=== PATIENT | male | born 1935 | race Caucasian/White ===

== ENCOUNTER → 2024-02-24 06:34 | Outpatient (REF) | payer MEDICARE, BC, SELFPAY ==
[2024-02-24 09:49] LABS: % Immature Granulocytes 0.2 % (0-0.5); % Neutrophils 59.8 % (42.2-75.2); Absolute Basophils 0.1 10^3/uL (0-0.2); Absolute Eosinophils 0.3 10^3/uL (0-0.7); Absolute Lymphocytes 1.5 10^3/uL (1.2-3.4); Absolute Monocytes 0.7 10^3/uL (0.1-0.6); Absolute Neutrophils 3.7 10^3/uL (1.4-6.5); Hematocrit 41.3 % (39.0-52.0); Mean Corp Hgb Conc. 33.9 g/dL (33.0-37.0); Mean Corpuscular Hgb 28.5 pg (27.0-31.0); Mean Corpuscular Volume 84.1 fL (80.0-94.0); Mean Platelet Volume 11.5 fL (7.4-10.4); Nucleated Red Blood Cells % 0 % (-); Platelet Count 178 10^3/uL (130-400); Red Blood Cell Count 4.91 10^6/uL (4.70-6.10); Red Cell Dist. Width 13.5 % (11.5-14.5); White Blood Cell Count 6.3 10^3/uL (4.8-10.8)
[2024-02-24 10:15] LABS: INR 1.27
[2024-02-24 10:16] LABS: APTT 39.3 Sec (23.4-35.0)
[2024-02-24 10:18] LABS: ALT (SGPT) 19 U/L (0-50); AST (SGOT) 25 U/L (17-59); Albumin 4.4 g/dl (3.5-5.0); Alkaline Phosphatase 48 U/L (38-126); Blood Urea Nitrogen 17 mg/dl (9-20); Calcium 9.7 mg/dl (8.4-10.2); Carbon Dioxide 28 mmol/L (22-30); Chloride 100 mmol/L (98-107); Glucose 143 mg/dl (70-99); HDL Cholesterol 52 mg/dl; LDL Cholesterol, Calculated 54 mg/dl; Potassium 3.9 mmol/L (3.5-5.1); Sodium 137 mmol/L (135-145); Total Cholesterol 132 mg/dl (50-199); Triglyceride 132 mg/dl (10-149); Very Low Density Lipoprotein 26 mg/dl (0-30); eGFR > 60.00
[2024-02-24 10:49] LABS: Glycohemoglobin (HgbA1c) 6.5 % (4.0-5.6)
[2024-02-24 11:20] LABS: Microalbumin, Random Urine 4.1 mg/dl (0.6-1.7)
[2024-02-24 11:21] LABS: Microalbumin/creatinine Ratio 32.9 mg/g
[2024-02-24 11:39] LABS: TSH Reflex To Free T4 3.45 uIU/ml (0.47-4.68)
[2024-02-24 19:34] LABS: AFP Male/Tumor Marker 2.89 ng/ml
== END ==
LOC: HWLAB 06:34
PROVIDERS: ATTENDING PHYSICIAN Nurse Practitioner; FAMILY PHYSICIAN Nurse Practitioner Family
DX: K74.69 Other cirrhosis of liver (principal); E78.00 Pure hypercholesterolemia, unspecified; I10 Essential (primary) hypertension; I25.10 Atherosclerotic heart disease of native coronary artery without angina pectoris; Z00.00 Encounter for general adult medical examination without abnormal findings; E11.9 Type 2 diabetes mellitus without complications
CPT/HCPCS: 36415; 80053; 80061; 82043; 82105; 82570; 83036; 84443; 85025; 85610; 85730

== ENCOUNTER → 2024-03-13 06:30 | Outpatient (REF) | payer MEDICARE, BC, SELFPAY | LOC: HWRAD 06:30 | PROVIDERS: ATTENDING PHYSICIAN Nurse Practitioner; FAMILY PHYSICIAN Nurse Practitioner Family | DX: K74.69 Other cirrhosis of liver (principal) | CPT/HCPCS: 76700 ==

== ENCOUNTER → 2024-05-12 10:56 | Outpatient (REF) | payer MEDICARE, BC, SELFPAY | LOC: HWRAD 10:56 | PROVIDERS: ATTENDING PHYSICIAN Nurse Practitioner Family | DX: M85.80 Other specified disorders of bone density and structure, unspecified site (principal); M85.89 Other specified disorders of bone density and structure, multiple sites | CPT/HCPCS: 77080 ==

== ENCOUNTER → 2024-09-21 07:09 | Outpatient (REF) | payer MEDICARE, BC, SELFPAY ==
[2024-09-21 10:09] LABS: % Basophils 0.9 % (0-2); % Eosinophils 3.4 % (0-6); % Immature Granulocytes 0.3 % (0-0.5); % Lymphocytes 19.8 % (20.5-51.1); % Monocytes 9.8 % (1.7-9.3); % Neutrophils 65.8 % (42.2-75.2); Absolute Basophils 0.1 10^3/uL (0-0.2); Absolute Eosinophils 0.2 10^3/uL (0-0.7); Absolute Lymphocytes 1.4 10^3/uL (1.2-3.4); Absolute Monocytes 0.7 10^3/uL (0.1-0.6); Absolute Neutrophils 4.6 10^3/uL (1.4-6.5); Hematocrit 43.9 % (39.0-52.0); Hemoglobin 15.1 g/dL (13.0-18.0); Mean Corp Hgb Conc. 34.4 g/dL (33.0-37.0); Mean Corpuscular Hgb 29.2 pg (27.0-31.0); Mean Corpuscular Volume 84.7 fL (80.0-94.0); Mean Platelet Volume 10.7 fL (7.4-10.4); Nucleated Red Blood Cells % 0 % (-); Platelet Count 196 10^3/uL (130-400); Red Blood Cell Count 5.18 10^6/uL (4.70-6.10); Red Cell Dist. Width 13.5 % (11.5-14.5)
[2024-09-21 10:36] LABS: ALT (SGPT) 17 U/L (0-50); AST (SGOT) 22 U/L (17-59); Albumin 4.5 g/dl (3.5-5.0); Alkaline Phosphatase 52 U/L (38-126); Blood Urea Nitrogen 19 mg/dl (9-20); Calcium 9.8 mg/dl (8.4-10.2); Carbon Dioxide 29 mmol/L (22-30); Chloride 95 mmol/L (98-107); Glucose 181 mg/dl (70-99); HDL Cholesterol 45 mg/dl; LDL Cholesterol, Calculated 76 mg/dl; Potassium 3.9 mmol/L (3.5-5.1); Sodium 136 mmol/L (135-145); Total Bilirubin 1.3 mg/dl (0.2-1.3); Total Cholesterol 150 mg/dl (50-199); Total Protein 7.3 g/dl (6.3-8.2); Triglyceride 145 mg/dl (10-149); Very Low Density Lipoprotein 29 mg/dl (0-30); eGFR 58.53
[2024-09-21 10:43] LABS: Microalbumin, Random Urine 3.4 mg/dl (0.6-1.7); Microalbumin/creatinine Ratio 20.6 mg/g
[2024-09-21 11:04] LABS: TSH Reflex To Free T4 3.05 uIU/ml (0.47-4.68)
[2024-09-21 11:09] LABS: Glycohemoglobin (HgbA1c) 7.5 % (4.0-5.6)
== END ==
LOC: HWLAB 07:09
PROVIDERS: ATTENDING PHYSICIAN Nurse Practitioner Family
DX: K74.69 Other cirrhosis of liver (principal); I10 Essential (primary) hypertension; E78.00 Pure hypercholesterolemia, unspecified; I48.0 Paroxysmal atrial fibrillation; B18.2 Chronic viral hepatitis C; J30.9 Allergic rhinitis, unspecified; E11.9 Type 2 diabetes mellitus without complications; M85.80 Other specified disorders of bone density and structure, unspecified site; R21 Rash and other nonspecific skin eruption
CPT/HCPCS: 36415; 80053; 80061; 82043; 82570; 83036; 84443; 85025

== ENCOUNTER 2024-10-05 09:10 | Emergency (ER) | payer MEDICARE, BC, SELFPAY ==
[2024-10-05 09:16] VITALS: BP 171/78
[2024-10-05 12:26] VITALS: BMI 29.9
[2024-10-05 12:29] LABS: % Basophils 0.8 % (0-2); % Eosinophils 1.7 % (0-6); % Immature Granulocytes 0.5 % (0-0.5); % Lymphocytes 22.6 % (20.5-51.1); % Monocytes 8.7 % (1.7-9.3); % Neutrophils 65.7 % (42.2-75.2); Absolute Basophils 0.1 10^3/uL (0-0.2); Absolute Eosinophils 0.1 10^3/uL (0-0.7); Absolute Lymphocytes 1.8 10^3/uL (1.2-3.4); Absolute Monocytes 0.7 10^3/uL (0.1-0.6); Absolute Neutrophils 5.2 10^3/uL (1.4-6.5); Hematocrit 45.2 % (39.0-52.0); Hemoglobin 15.6 g/dL (13.0-18.0); Mean Corp Hgb Conc. 34.5 g/dL (33.0-37.0); Mean Corpuscular Hgb 29.2 pg (27.0-31.0); Mean Corpuscular Volume 84.5 fL (80.0-94.0); Mean Platelet Volume 10.8 fL (7.4-10.4); Nucleated Red Blood Cells % 0 % (-); Platelet Count 203 10^3/uL (130-400); Red Blood Cell Count 5.35 10^6/uL (4.70-6.10); Red Cell Dist. Width 13.7 % (11.5-14.5); White Blood Cell Count 7.8 10^3/uL (4.8-10.8)
[2024-10-05 12:44] LABS: ALT (SGPT) 19 U/L (0-50); AST (SGOT) 25 U/L (17-59); Albumin 4.6 g/dl (3.5-5.0); Alkaline Phosphatase 50 U/L (38-126); Blood Urea Nitrogen 20 mg/dl (9-20); Calcium 9.9 mg/dl (8.4-10.2); Carbon Dioxide 26 mmol/L (22-30); Chloride 97 mmol/L (98-107); Estimated Creatinine Clearance 48 ml/min; Glucose 184 mg/dl (70-99); Potassium 4.3 mmol/L (3.5-5.1); Total Bilirubin 1.5 mg/dl (0.2-1.3); Total Protein 7.6 g/dl (6.3-8.2); eGFR > 60.00
[2024-10-05 12:46] VITALS: BP 182/73
[2024-10-05 13:00] LABS: Sodium 131 mmol/L (135-145)
--- NOTE | 2024-10-05 14:31 | ED.GENMED ---
History of Present Illness
General
Chief Complaint: Visual Problem
Source: patient
Time Seen by Provider: 10/05/24 11:57
History of Present Illness
History of Present Illness:
This is an 89-year-old male who presents with 3 days of symptoms. He presents reporting that 3 days ago was having little bit of pressure and some symptoms around his left eye. It was suspected to be sinusitis. States he started to have some
vision changes and today admits to double vision. Denies motor weakness. No vomiting. No headache. No difficulty walking. Patient states that his double vision has persisted.
Past History
Past History
ED Past Medical History: Arrthythmia (A fib followed by [facility] Dr. Ramos.), Cancer (colon cancer 1986. Last colonoscopy [address] Cutler.), HTN, Hypercholesterolemia, NIDDM, Psychiatric (anxiety) and Other (lumbar DJD)
ED Past Surgical History: Bowel resection (colostomy followed by Dr. Cutler. Last colonoscopy 12/2012.) and Cardiac
Social History
Tobacco: Non-smoker
Alcohol: None
Drug: None
Personal:
Living: with family
Employment: Retired
Family History
Family History: Other (Noncontributory)
Phy Exam
Physical Exam
Physical Exam:
CONSTITUTIONAL Patient alert and oriented to person, place and time. Well-appearing. Vital signs reviewed.
HEAD atraumatic, normocephalic.
EYES mild left ptosis, left cranial nerve III palsy noted. No double vision with lateral gaze to the left. Pupil normal and reactive
NECK normal range of motion, Trachea midline, no jugular venous distention.
RESPIRATORY CHEST No respiratory distress noted, Chest expansion equal, Bilateral breath sounds clear.
CARDIOVASCULAR regular rate and rhythm, Heart sounds normal.
BACK normal inspection, no obvious deformities
UPPER EXTREMITY range of motion normal, Motor strength normal, no cyanosis, no edema.
LOWER EXTREMITY range of motion normal, Motor strength normal, no cyanosis, no edema.
NEURO Speech normal, No focal motor deficits, J Carlos coma scale 15, Memory normal, Cranial Nerves intact to screening exam.
SKIN skin warm, dry, and normal in color.
Course
Orders/Labs/Results
Orders:
Orders
10/05/24 12:14
CT Orbits W/o Iv Contrast Urgent
Comment:
Reason For Exam: L Cn 3 palsy, facial fullness
10/05/24 12:15
CT Head W/o Iv Contrast Urgent
Comment:
Reason For Exam: L CN III palsy
10/05/24 12:19
Comprehensive Metabolic Panel Urgent
10/05/24 12:20
Complete Blood Count/With Diff Urgent
Abnormal Lab Results
10/05/24 10/05/24
12:19 12:20
MPV 10.8 H fL
(7.4-10.4)
Absolute Monos (auto) 0.7 H 10^3/uL
(0.1-0.6)
Sodium 131 L mmol/L
(135-145)
Chloride 97 L mmol/L
(98-107)
Glucose 184 H mg/dl
(70-99)
Total Bilirubin 1.5 H mg/dl
(0.2-1.3)
10/05/24 12:20
10/05/24 12:19
Vital Signs
Initial and Last Documented VS:
Initial Vital Signs
Temp Pulse Resp BP Pulse Ox
97.6 F 78 16 171/78 98
10/05/24 09:16 10/05/24 09:16 10/05/24 09:16 10/05/24 09:16 10/05/24 09:16
Last Documented Vital Signs
Temp Pulse Resp BP Pulse Ox
98.2 F 78 16 182/73 98
10/05/24 12:46 10/05/24 09:16 10/05/24 12:46 10/05/24 12:46 10/05/24 12:46
MDM/Problems Addressed
MDM/Problems Addressed:
Uncontrolled hypertension, cranial nerve III palsy, hyperglycemia
*Radiology
Radiology exam reviewed: preliminary read by ED provider (No obvious bleeding by CT) and radiology read reviewed
*Pulse Oximetry
Patient hypoxic: no
*Critical Care Note
Total Time (30-74mins, 75-104mins- exclusive of procedures): 30 minutes
Data Reviewed
Source: patient
Further Testing Considered But Not Given:
Consider CTA but no change in pupil
Patient Management
Discussion with other providers: Medical Staffing Coordinator (Case discussed with neurology)
Escalation/DeEscalation of care consider admission/obs:
Patient already on Eliquis and aspirin. Seen by neurology feels the patient can go home. Neurology recommends continue current medications. He does not recommend admission for any further studies. I will recommend outpatient follow-up with his
primary care doctor.
ED Attending Note
-
Portions of this chart may have been created with voice recognition software.� Occasional wrong word or��sound alike� substitutions may have occurred due to the inherent limitations of voice recognition software.
Discharge Plan
Departure
Patient Disposition: Home (Routine Discharge)
Date of Disposition: 10/05/24
Time of Disposition: 14:32
Patient with high blood pressure during this ER visit?: Yes
Discharge Problem:
3rd cranial nerve palsy
Instructions: BLOOD PRESSURE
Prescriptions:
No Action
carvedilol 6.25 MG tablet
6.25 mg PO BID
amlodipine 5 MG tablet
5 mg PO DAILY
tamsulosin 0.4 MG capsule
0.4 mg PO DAILY
metformin 500 MG tablet extended release 24 hr
500 mg PO DAILY
finasteride 5 MG tablet
5 mg PO DAILY
rosuvastatin 5 MG tablet
5 mg PO QPM
aspirin 81 MG tablet,delayed release (DR/EC)
81 mg PO DAILY
losartan-hydrochlorothiazide 100-25 mg Tablet
1 tab PO DAILY
doxycycline monohydrate 100 mg Capsule
100 mg PO BID
Referrals:
Taz Jordan CRNP [Family Provider] -
Activity Restrictions/Additional Instructions:
3rd nerve palsy
Please continue your baby aspirin daily and your cholesterol medicine. Please be sure to see your doctor in the next 3 to 5 days for follow-up and reevaluation. Outpatient neurology follow-up is also important. Please have your doctor arrange
neurology follow-up in the next 2 to 3 weeks. Return immediately for vision changes that are worsening, difficulty with your speech, difficulty walking, weakness of any kind, numbness, tingling or any other concerns.
Your blood pressure was elevated while in the Emergency Department, please have your doctor re-evaluate it in the next 48 hours as untreated hypertension may lead to serious complications.
Interventions
Interventions:
*Risk Screen - Suicide Last Done: 10/05/24 09:22
*Neglect/Abuse Screening Last Done: 10/05/24 09:22
ED- Fall Risk Assessment Last Done: 10/05/24 12:26
ED- Neurological Assessment Last Done: 10/05/24 12:26
ED-EENT Assessment Last Done: 10/05/24 12:26
ED Swallowing Screen Last Done: 10/05/24 12:26
Discharge Date and Time
Print Language: UPPER SORBIAN
[2024-10-05 16:55] VITALS: BP 180/70
--- NOTE | 2024-10-05 17:38 | CON.NEURO ---
Neuro Assessment/Plan
Assessment
Cannon Syndrome, midbrain stroke.
Exam with Left CN 3 palsy and right sided vibratory loss
this is posterior circulation, so no need for carotid imaging
stroke secondary prevention continue ASA 81, Rosuvastatin 5
this stroke may be too small to see on MRI, and I dont believe it will change the management
Patient hoping to go home, and I agree as I don't believe further workup will change anything
Plan
continue ASA 81, Rosuvastatin 5
spoke with patient that usually this gets better on its own;
eye patch PRN for comfort
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
Consultation
Order
Date of Consultation: 10/05/24
Requesting Provider: Robles Mcnamara
Reason for Consult: CN3 palsy
Subjective/Objective
Subjective Data
Date of Service: October 05, 2024
From ED notes:
This is an 89-year-old male who presents with 3 days of symptoms. He presents reporting that 3 days ago was having little bit of pressure and some symptoms around his left eye. It was suspected to be sinusitis. States he started to have some
vision changes and today admits to double vision. Denies motor weakness. No vomiting. No headache. No difficulty walking. Patient states that his double vision has persisted.
Objective Data
Vital Signs
Temp Pulse Resp BP Pulse Ox
36.8 C 75 15 180/70 98
10/05/24 12:46 10/05/24 16:55 10/05/24 16:55 10/05/24 16:55 10/05/24 16:55
Lab Results
10/05/24 12:20
10/05/24 12:19
Sodium 131 mmol/L (135-145) L 10/05/24 12:19
Potassium 4.3 mmol/L (3.5-5.1) 10/05/24 12:19
BUN 20 mg/dl (9-20) 10/05/24 12:19
Glucose 184 mg/dl (70-99) H 10/05/24 12:19
Calcium 9.9 mg/dl (8.4-10.2) 10/05/24 12:19
Patient Allergies
lisinopril Adverse Reaction (Verified 12/24/21 01:47)
dry mouth
Physical Exam
-
Awake and Alert, speech Clear
'medical' Left CN 3 palsy, with ptosis, and normal pupil reflex
?trace L NL flattening
trace right sided vibratory loss
full strength b/l UE/LE
Medications
-
Home Medications
�Medication �Instructions �Recorded
amlodipine 5 mg tablet 5 mg PO DAILY Blood pressure 06/17/20
carvedilol 6.25 mg tablet 6.25 mg PO BID Blood pressure 06/17/20
finasteride 5 mg tablet 5 mg PO DAILY prostate issues 06/17/20
metformin 500 mg tablet,extended 500 mg PO DAILY Diabetes 06/17/20
release 24 hr
rosuvastatin 5 mg tablet 5 mg PO QPM High cholesterol 06/17/20
tamsulosin 0.4 mg capsule 0.4 mg PO DAILY Urinary issue 06/17/20
aspirin 81 mg tablet,delayed 81 mg PO DAILY Blood clot 06/18/20
release prevention/tx
doxycycline monohydrate 100 mg 100 mg PO BID 10/05/24
capsule
losartan 100 1 tab PO DAILY 10/05/24
mg-hydrochlorothiazide 25 mg tablet
== END 2024-10-05 17:10 | disposition home or self-care (01) ==
LOC: EMR 09:10
PROVIDERS: EMERGENCY PHYSICIAN Emergency Medicine; FAMILY PHYSICIAN Nurse Practitioner Family; OTHER PHYSICIAN Psychiatry & Neurology Clinical Neurophysiology
DX: H49.02 Third [oculomotor] nerve palsy, left eye (principal); I48.91 Unspecified atrial fibrillation; E78.00 Pure hypercholesterolemia, unspecified; I10 Essential (primary) hypertension; E11.65 Type 2 diabetes mellitus with hyperglycemia; Z79.84 Long term (current) use of oral hypoglycemic drugs; Z79.899 Other long term (current) drug therapy; Z85.038 Personal history of other malignant neoplasm of large intestine; Z93.3 Colostomy status
CPT/HCPCS: 99284; 70450; 70480; 80053; 85025; 93005

== ENCOUNTER 2025-01-30 00:19 | Emergency (ER) | payer MEDICARE, BC, SELFPAY ==
[2025-01-30 00:22] VITALS: BP 180/106
[2025-01-30 04:09] VITALS: BMI 28.8
[2025-01-30 05:00] VITALS: BP 168/75
--- NOTE | 2025-01-30 05:24 | ED.GENMED ---
History of Present Illness
General
Chief Complaint: Ostomy Problem
Source: patient and previous hospital records
Exam Limitations: none
Time Seen by Provider: 01/30/25 04:54
Nursing documentation reviewed up to this point in time: agreed with
History of Present Illness
History of Present Illness:
This is an 89-year-old gentleman with history of A-fib chronically maintained on low-dose aspirin as well as Xarelto. He has remote history of colon cancer with colostomy in place left lower quadrant.
He presents with bleeding from stoma that began yesterday. He has had sporadic similar issues in the past most recently December 2021. Has previously required silver nitrate cautery. He denies blood in his stools, denies abdominal pain, no dizziness
nor lightheadedness, no fever no chills, no nausea no vomiting.
Past History
Past History
ED Past Medical History: Arrthythmia (A fib followed by [facility] Dr. Ramos.), Cancer (colon cancer 1986. Last colonoscopy [address] Cutler.), HTN, Hypercholesterolemia, NIDDM, Psychiatric (anxiety) and Other (lumbar DJD)
ED Past Surgical History: Bowel resection (colostomy followed by Dr. Cutler. Last colonoscopy 12/2012.) and Cardiac
Social History
Tobacco: Non-smoker
Alcohol: None
Drug: None
Personal:
Living: with family
Employment: Retired
Family History
Family History: Other (Noncontributory)
Phy Exam
Physical Exam
Physical Exam:
GENERAL: 89-year-old gentleman appears his stated age, bright and alert, pleasant, appears in no acute distress. Hemodynamically stable.
EYE: anicteric
NECK: Supple, nontender, no meningismus, no significant adenopathy.
ENT: oral mucosa is moist.
CARDIAC: Regular rate and rhythm. no murmur.
LUNGS: Clear breath sounds bilaterally, no acute respiratory distress, no wheezes/rales/rhonchi
ABDOMEN: Rotund, soft, nondistended, without focal tenderness. Colostomy left lower quadrant with scant dark blood within the bag. Colostomy apparatus removed, stoma site cleansed with normal saline solution and 4 x 4 to reveal scant active
bleeding from left lateral edge of the stoma. This lateral edge of the stoma was cauterized with silver nitrate with prompt resolution of bleeding. There is no erythema, no soft tissue swelling. No bleeding from any other site of the stoma.
NEUROLOGICAL: Alert and oriented x3, no focal neuro deficits. Gait is steady.
SKIN: Warm and dry, normal color, skin intact. No rash.
MUSCULOSKELETAL: No C/C/E. peripheral pulses are full and equal b/l. No palpable tenderness.
PSYCH: Normal and appropriate interaction.
Course
Vital Signs
Initial and Last Documented VS:
Initial Vital Signs
Temp Pulse Resp BP Pulse Ox
97.4 F 82 20 180/106 97
01/30/25 00:22 01/30/25 00:22 01/30/25 00:22 01/30/25 00:22 01/30/25 00:22
Last Documented Vital Signs
Temp Pulse Resp BP Pulse Ox
97.4 F 82 20 180/106 97
01/30/25 00:22 01/30/25 00:22 01/30/25 00:22 01/30/25 00:22 01/30/25 00:22
MDM/Problems Addressed
Differential Diagnosis Includes:
As above.
Patient chronically maintained on anticoagulation presents with bleeding from left lateral edge of colostomy. There is no evidence of GI bleeding, no bloody colostomy output.
Lateral edge of stoma readily cauterized with silver nitrate.
There does appear to be very superficial abrasion lateral edge of the stoma that appears consistent with the edge of the ostomy apparatus. Recommend he trim a larger hole in his stoma apparatus to prevent focal rubbing of his stoma.
He remains hemodynamically stable. No evidence of significant blood loss. No indication for laboratory studies.
Prompt follow-up with PCP for recheck.
Chronic conditions affecting care: Arrhythmia and Previous abdomnial surgery
*Pulse Oximetry
SaO2: 97
Oxygen Mode of Delivery: Room air
Patient hypoxic: no
*Critical Care Note
Total Time (30-74mins, 75-104mins- exclusive of procedures): Not Applicable
ED Attending Note
-
Portions of this chart may have been created with voice recognition software.� Occasional wrong word or��sound alike� substitutions may have occurred due to the inherent limitations of voice recognition software.
Discharge Plan
Departure
Patient Disposition: Home (Routine Discharge)
Date of Disposition: 01/30/25
Time of Disposition: 05:24
Patient with high blood pressure during this ER visit?: No
Condition: Good
Discharge Problem:
Bleeding from colostomy stoma
Instructions: How to care for an ostomy
Prescriptions:
No Action
carvedilol 6.25 MG tablet
6.25 mg PO BID
amlodipine 5 MG tablet
5 mg PO DAILY
tamsulosin 0.4 MG capsule
0.4 mg PO DAILY
metformin 500 MG tablet extended release 24 hr
500 mg PO DAILY
finasteride 5 MG tablet
5 mg PO DAILY
rosuvastatin 5 MG tablet
5 mg PO QPM
aspirin 81 MG tablet,delayed release (DR/EC)
81 mg PO DAILY
losartan-hydrochlorothiazide 100-25 mg Tablet
1 tab PO DAILY
doxycycline monohydrate 100 mg Capsule
100 mg PO BID
Xarelto
20 mg PO DAILY
Referrals:
Taz Jordan CRNP [Family Provider, Family Practice] - Call in 1-3 days for appt
Interventions
Interventions:
*Risk Screen - Suicide Last Done: 01/30/25 00:22
*General Assessment Last Done: 01/30/25 04:09
*Neglect/Abuse Screening Last Done: 01/30/25 00:22
*ED- Fall Risk Assessment Last Done: 01/30/25 03:49
*ED COVID-19 Vaccine History Last Done: 01/30/25 03:49
IS-Flwfpw-Oryejszlym Assessment Last Done: 01/30/25 03:30
ED-Male Genitourinary Assessment Last Done: 01/30/25 03:32
Discharge Date and Time
Print Language: ARMENIAN
[2025-01-30 05:30] VITALS: BP 168/75
== END 2025-01-30 05:30 | disposition home or self-care (01) ==
LOC: EMR 00:19
PROVIDERS: EMERGENCY PHYSICIAN Emergency Medicine; FAMILY PHYSICIAN Nurse Practitioner Family
DX: K94.01 Colostomy hemorrhage (principal); I48.91 Unspecified atrial fibrillation; I10 Essential (primary) hypertension; E78.00 Pure hypercholesterolemia, unspecified; E11.9 Type 2 diabetes mellitus without complications; F41.9 Anxiety disorder, unspecified; M47.816 Spondylosis without myelopathy or radiculopathy, lumbar region; Z79.82 Long term (current) use of aspirin; Z79.02 Long term (current) use of antithrombotics/antiplatelets; Z85.038 Personal history of other malignant neoplasm of large intestine; Z98.0 Intestinal bypass and anastomosis status; Z88.8 Allergy status to other drugs, medicaments and biological substances
CPT/HCPCS: 99283

== ENCOUNTER 2025-01-31 05:11 | Emergency (ER) | payer MEDICARE, BC, SELFPAY ==
[2025-01-31 05:16] VITALS: BP 119/95
--- NOTE | 2025-01-31 06:20 | ED.GENMED ---
History of Present Illness
General
Chief Complaint: Ostomy Problem
Source: patient
Exam Limitations: none
Time Seen by Provider: 01/31/25 05:54
History of Present Illness
History of Present Illness:
89-year-old male presents with bleeding from his ostomy site. Was here 24 hours ago. Cauterized at that time. History of same. Patient feels fine. No physical complaints. On Xarelto for atrial fibrillation. History of mini stroke.
Past History
Past History
ED Past Medical History: Arrthythmia (A fib followed by [facility] Dr. Ramos.), Cancer (colon cancer 1986. Last colonoscopy [address] Cutler.), HTN, Hypercholesterolemia, NIDDM, Psychiatric (anxiety) and Other (lumbar DJD)
ED Past Surgical History: Bowel resection (colostomy followed by Dr. Cutler. Last colonoscopy 12/2012.) and Cardiac
Social History
Tobacco: Non-smoker
Alcohol: None
Drug: None
Personal:
Living: with family
Employment: Retired
Family History
Family History: Other (Noncontributory)
Review of Systems
Review of Systems
All Other Systems: Not applicable
ABD/GI: Denies abdominal pain
Phy Exam
Physical Exam
Physical Exam:
GENERAL: Alert and oriented in no apparent distress
EYE: Orbits normal.
CARDIAC: Regular rate and rhythm
LUNGS: No respiratory distress
ABDOMEN: Soft, without focal tenderness or distention. Ostomy appears well with some granulomas around the edges. At the 3 o'clock position or the left side of the patient there is some cauterized area with slight oozing. Stool appears normal
NEUROLOGICAL: Alert and oriented , grossly non-focal
SKIN: Warm and dry
PSYCH: Normal and appropriate interaction.
Course
Orders/Labs/Results
Orders:
Orders
01/31/25 06:00
Tranexamic Acid 1,000 mg .ROUTE .STK-MED ONE
01/31/25 06:44
Lidocaine/Epinephrine/Tetracai [Let Topical Anesthetic Gel] 3 ml .ROUTE .STK-MED ONE
Vital Signs
Initial and Last Documented VS:
Initial Vital Signs
Temp Pulse Resp BP Pulse Ox
97.6 F 70 18 119/95 97
01/31/25 05:16 01/31/25 05:16 01/31/25 05:16 01/31/25 05:16 01/31/25 05:16
Last Documented Vital Signs
Temp Pulse Resp BP Pulse Ox
97.6 F 70 18 119/95 97
01/31/25 05:16 01/31/25 05:16 01/31/25 05:16 01/31/25 05:16 01/31/25 06:23
MDM/Problems Addressed
Differential Diagnosis Includes:
Bleeding appears to be localized to an external granuloma site. Was cauterized previously. Would like to try to not recauterized. Will try TXA. May try some local let with Dermabond.
*Pulse Oximetry
SaO2: 97
Oxygen Mode of Delivery: Room air
Patient hypoxic: no
*Critical Care Note
Total Time (30-74mins, 75-104mins- exclusive of procedures): Not Applicable
Data Reviewed
Review of Other/Old Records Reveals: Labs, Records and Testing
Update Note
Update Note:
Multiple rechecks and reevaluations. Area initially was used with TXA. Local pressure. Still oozing. Then tried let with Dermabond. Again still mild oozing. Then localized cautery. This appeared to work and was dermabonded on top of this.
Currently not bleeding. Discharged to follow-up
ED Attending Note
-
Portions of this chart may have been created with voice recognition software.� Occasional wrong word or��sound alike� substitutions may have occurred due to the inherent limitations of voice recognition software.
Discharge Plan
Departure
Patient Disposition: Home (Routine Discharge)
Date of Disposition: 01/31/25
Time of Disposition: 07:51
Patient with high blood pressure during this ER visit?: Yes
Discharge Problem:
Bleeding ostomy
Instructions: BLOOD PRESSURE
Prescriptions:
No Action
carvedilol 6.25 MG tablet
6.25 mg PO BID
amlodipine 5 MG tablet
5 mg PO DAILY
tamsulosin 0.4 MG capsule
0.4 mg PO DAILY
metformin 500 MG tablet extended release 24 hr
500 mg PO DAILY
finasteride 5 MG tablet
5 mg PO DAILY
rosuvastatin 5 MG tablet
5 mg PO QPM
aspirin 81 MG tablet,delayed release (DR/EC)
81 mg PO DAILY
losartan-hydrochlorothiazide 100-25 mg Tablet
1 tab PO DAILY
Xarelto
20 mg PO DAILY
Referrals:
Taz Baugh MD [Active, ColoRectal] - Next open appointment
UNKNOWN - PT DOES,NOT KNOW [Unknown Provider]
Activity Restrictions/Additional Instructions:
Recommend follow-up with a colorectal surgeon. Did give you the name of our local colorectal surgeon.
If bleeding recurs you can try local pressure for 15 to 20 minutes however if this does not work return for reevaluation
Also watch for secondary infection including unusual redness drainage fever discharge etc.
Interventions
Interventions:
*Risk Screen - Suicide Last Done: 01/31/25 05:16
*General Assessment Last Done: 01/31/25 05:16
*Neglect/Abuse Screening Last Done: 01/31/25 05:16
*ED- Fall Risk Assessment Last Done: 01/31/25 05:16
*ED COVID-19 Vaccine History Last Done: 01/31/25 05:16
KA-Yvamvn-Yksbqpeuhz Assessment Last Done: 01/31/25 06:00
ED-Male Genitourinary Assessment Last Done: 01/31/25 06:00
Discharge Date and Time
Print Language: PASHTO
--- NOTE | 2025-01-31 09:00 | WOUNDNOTE ---
WON RN NOTE: Asked to see patient by nurse to apply new ostomy appliance. 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 No longer bleeding but recommended to patient to cut wafer wider to prevent from further bleeding and
clean gently. Using Convatec closed end 2 piece currently. Today applied 2 3/4' Maren 2 Piece drainable. Had patient open and close pouch, able to do. Patient confirmed can cut his own wafer's wider to fit. Updated nurse on the above, will sign
off.
== END 2025-01-31 10:00 | disposition home or self-care (01) ==
LOC: EMR 05:11
PROVIDERS: EMERGENCY PHYSICIAN Emergency Medicine; FAMILY PHYSICIAN Nurse Practitioner Family
DX: K94.01 Colostomy hemorrhage (principal); E11.9 Type 2 diabetes mellitus without complications; E78.00 Pure hypercholesterolemia, unspecified; I10 Essential (primary) hypertension; I48.91 Unspecified atrial fibrillation; Z79.01 Long term (current) use of anticoagulants; Z85.038 Personal history of other malignant neoplasm of large intestine; Z86.73 Personal history of transient ischemic attack (TIA), and cerebral infarction without residual deficits
CPT/HCPCS: 99283

== ENCOUNTER → 2025-04-06 06:36 | Outpatient (REF) | payer MEDICARE, BC, SELFPAY ==
[2025-04-06 09:40] LABS: Hematocrit 41.7 % (39.0-52.0); Hemoglobin 13.8 g/dL (13.0-18.0); Mean Corp Hgb Conc. 33.1 g/dL (33.0-37.0); Mean Corpuscular Volume 85.1 fL (80.0-94.0); Nucleated Red Blood Cells % 0 % (-); Platelet Count 160 10^3/uL (130-400); Red Cell Dist. Width 13.6 % (11.5-14.5)
[2025-04-06 09:51] LABS: INR 2.65; PT 28.3 Sec (11.4-14.6)
[2025-04-06 09:52] LABS: APTT 39.3 Sec (23.4-35.0)
[2025-04-06 10:05] LABS: ALT (SGPT) 21 U/L (0-50); AST (SGOT) 21 U/L (17-59); Albumin 4.4 g/dl (3.5-5.0); Alkaline Phosphatase 43 U/L (38-126); Blood Urea Nitrogen 26 mg/dl (9-20); Calcium 9.7 mg/dl (8.4-10.2); Carbon Dioxide 29 mmol/L (22-30); Chloride 101 mmol/L (98-107); Glucose 174 mg/dl (70-99); HDL Cholesterol 48 mg/dl; LDL Cholesterol, Calculated 63 mg/dl; Potassium 3.9 mmol/L (3.5-5.1); Sodium 138 mmol/L (135-145); Total Protein 7.1 g/dl (6.3-8.2); Very Low Density Lipoprotein 25 mg/dl (0-30); eGFR 58.17
[2025-04-06 10:11] LABS: Glycohemoglobin (HgbA1c) 7.3 % (4.0-5.6)
[2025-04-06 10:17] LABS: Microalb - Urine Creatinine 138.900 mg/dl
[2025-04-06 10:26] LABS: Microalbumin, Random Urine 3.1 mg/dl (0.6-1.7)
[2025-04-06 11:24] LABS: AFP Male/Tumor Marker 3.93 ng/ml
== END ==
LOC: HWLAB 06:36
PROVIDERS: ATTENDING PHYSICIAN Nurse Practitioner Family
DX: Z00.00 Encounter for general adult medical examination without abnormal findings (principal); I10 Essential (primary) hypertension; Z93.3 Colostomy status; Z13.31 Encounter for screening for depression; K74.69 Other cirrhosis of liver; E78.00 Pure hypercholesterolemia, unspecified; I48.0 Paroxysmal atrial fibrillation; B18.2 Chronic viral hepatitis C; J30.9 Allergic rhinitis, unspecified; E11.9 Type 2 diabetes mellitus without complications; M85.80 Other specified disorders of bone density and structure, unspecified site; Z86.69 Personal history of other diseases of the nervous system and sense organs
CPT/HCPCS: 36415; 80053; 80061; 82043; 82105; 82570; 83036; 84443; 85025; 85610; 85730

== ENCOUNTER → 2025-04-12 09:39 | Outpatient (REF) | payer MEDICARE, BC, SELFPAY | LOC: HWRAD 09:39 | PROVIDERS: ATTENDING PHYSICIAN Nurse Practitioner Family | DX: Z00.00 Encounter for general adult medical examination without abnormal findings (principal); I10 Essential (primary) hypertension; Z93.3 Colostomy status; Z13.31 Encounter for screening for depression; K74.69 Other cirrhosis of liver; E78.00 Pure hypercholesterolemia, unspecified; I48.0 Paroxysmal atrial fibrillation; B18.2 Chronic viral hepatitis C; J30.9 Allergic rhinitis, unspecified; E11.9 Type 2 diabetes mellitus without complications; M85.80 Other specified disorders of bone density and structure, unspecified site; Z86.69 Personal history of other diseases of the nervous system and sense organs | CPT/HCPCS: 76700 ==